=== PATIENT | female | born 1985 | race Caucasian/White ===

== ENCOUNTER 2021-10-13 14:13 | Outpatient (CLI) | payer BC, SELFPAY ==
[2021-10-13 21:52] LABS: Albumin* 4.1 g/dL (3.3-5.0)
[2021-10-13 21:54] LABS: Chloride* 102 mmol/L (96-114); Creatinine* 0.8 mg/dL (0.5-1.5); Estimated Glomerular Filt Rate 98 ml/min; Potassium* 4.7 mmol/L (3.6-5.1); Sodium* 138 mmol/L (135-149)
[2021-10-13 21:55] LABS: Alanine Aminotransferase* 12 U/L (4-35); Alkaline Phosphatase* 58 U/L (40-150); Aspartate Amino Transferase* 22 U/L (12-35); Bilirubin Total* 0.6 mg/dL (0.1-1.5); Blood Urea Nitrogen* 13 mg/dL (5-24); Calcium* 9.1 mg/dL (8.4-10.6); Carbon Dioxide* 30 mmol/L (20-32); Glucose* 74 mg/dL (60-115); Total Protein* 6.9 g/dL (6.0-8.3)
== END 2021-10-13 14:14 | disposition home or self-care (01) ==
PROVIDERS: PCP Physician Assistant Medical; Visit Provider Physician Assistant Medical
DX: R42 Dizziness and giddiness (principal)
CPT/HCPCS: 80053; 84443

== ENCOUNTER 2021-10-17 10:33 | Outpatient (CLI) | payer BC, SELFPAY | END 2021-10-17 10:34 | disposition home or self-care (01) | LOC: LKVREF 10-19 10:49 | PROVIDERS: PCP Physician Assistant Medical; Visit Provider Nurse Practitioner Family | DX: R35.0 Frequency of micturition (principal); R30.0 Dysuria; N39.0 Urinary tract infection, site not specified | CPT/HCPCS: 87086; 87186 ==

== ENCOUNTER 2021-10-26 07:11 | Outpatient (CLI) | payer BC, SELFPAY ==
--- NOTE | 2021-10-26 07:15 | CRLHL7_ITS ---
For Patients: As a result of the Cures Act, medical imaging exams and procedure reports are released immediately into your electronic medical record. You may view this report before your referring provider. If you have questions, please contact your health care provider. INDICATION: Migraines. TECHNIQUE: Sagittal T1 axial FLAIR T2 and diffusion weighted images. COMPARISON: Previous MRI brain dated 07/06/2020. FINDINGS: Lateral 3rd and 4th ventricles are normal in size and shape. No evidence of recent ischemic infarction. No areas of diffusion restriction. No evidence of intracranial hemorrhage. No mass effect or brain edema. Brainstem and cerebellum appear normal. The orbits sella turcica and skullbase unremarkable. Small chronic retention cyst in the right maxillary antrum. IMPRESSION: 1. No evidence of acute infarction intracranial hemorrhage or mass. 2. No interval changes - no new findings compared to prior MRI of 07/06/2020. Dictated by Mj Weinstein MD @ 10/26/2021 9:20:00 AM (Electronically Signed)
== END 2021-10-26 07:12 | disposition home or self-care (01) ==
LOC: MRI 07:13
PROVIDERS: PCP Physician Assistant Medical; Visit Provider Physician Assistant Medical
DX: G43.909 Migraine, unspecified, not intractable, without status migrainosus (principal)
CPT/HCPCS: 70551

== ENCOUNTER 2022-01-11 15:21 | Outpatient (CLI) | payer BC, SELFPAY ==
[2022-01-13 19:11] LABS: Rheumatoid Factor <10 IU/mL (0-14)
[2022-01-14 00:32] LABS: Anti-Nuclear Ab(ANA)IgG ELISA None Detected (None Detected)
== END 2022-01-11 15:22 | disposition home or self-care (01) ==
PROVIDERS: PCP Physician Assistant Medical; Visit Provider Otolaryngology
DX: H93.19 Tinnitus, unspecified ear (principal)
CPT/HCPCS: 84443; 86039; 86431; 86618

== ENCOUNTER 2022-01-26 19:27 | Outpatient (CLI) | payer BC, SELFPAY ==
--- NOTE | 2022-02-02 14:38 | W.PM.SLEEP ---
Sleep Study Details Details Interpreting Provider: Wale Sahu MD Date of Sleep Study: 01/26/22 Sleep Study Details: STUDY TYPE:? Home ? BMI:? 31.7 ORDERING PROVIDER:? Homero INDICATION:? Concerns about sleep apnea ? SLEEP SUMMARY:? 464 minutes monitored RESPIRATORY SUMMARY:? AHI 8.4, supine 7.4, prone 4.9, right lateral 16.4 Low oxygen 90 Snoring 0.1% PERIODIC LIMB MOVEMENTS OF SLEEP:? Not recorded CARDIAC:? Range 46-102, mean 63.3 IMPRESSION:? Mild obstructive sleep apnea worse in the supine position and right lateral position. RECOMMENDATION: Treatment options include CPAP AutoSet 4-17, dental appliance and/or airway expansion surgery
== END 2022-01-26 19:28 | disposition home or self-care (01) ==
LOC: SLEEP 19:28
PROVIDERS: PCP Physician Assistant Medical; Visit Provider Otolaryngology
DX: G47.33 Obstructive sleep apnea (adult) (pediatric) (principal)
CPT/HCPCS: 95806

== ENCOUNTER 2022-02-04 15:10 | Outpatient (CLI) | payer BC, SELFPAY ==
--- NOTE | 2022-02-04 15:26 | CRLHL7_ITS ---
For Patients: As a result of the Century Cures Act, medical imaging exams and procedure reports are released immediately into your electronic medical record. You may view this report before your referring provider. If you have questions, please contact your health care provider. Indication: Headache. Technique: CT of the sinuses performed without IV contrast Comparison: MR brain 10/26/2021. Findings: Frontal sinuses: Clear. Ethmoid sinuses: Minimal mucosal thickening, with small because tension cyst/polyp left ethmoid air cells. Maxillary sinuses: Mild polypoid mucosal thickening along the floor of the right maxillary sinus. Left maxillary sinus is clear. Sphenoid sinuses: Clear. The ostiomeatal units, sphenoethmoidal and frontoethmoidal recesses are patent. No air-fluid levels. No aggressive osseous erosion or periosteal reaction. No face into the fat planes. Nasal Cavity: Slight rightward nasal septal deviation. The temporomandibular joints appear intact. Mastoid air cells appear clear. Visualized intracranial compartments appear grossly intact. Impression: 1. Mild polypoid mucosal thickening along the floor of the right maxillary sinus. Minimal ethmoid sinus mucosal disease. 2. No evidence of acute sinusitis Please note that all CT scans at this facility use dose modulation, iterative reconstruction, and/or weight-based dosing when appropriate to reduce radiation dose to as low as reasonably achievable. Dictated by Jass Fitzgerald MD @ 02/04/2022 4:39:39 PM (Electronically Signed)
== END 2022-02-04 15:11 | disposition home or self-care (01) ==
LOC: CT 15:11
PROVIDERS: PCP Physician Assistant Medical; Visit Provider Otolaryngology
DX: R51.9 Headache, unspecified (principal); J32.0 Chronic maxillary sinusitis
CPT/HCPCS: 70486

== ENCOUNTER 2022-04-21 09:13 | Outpatient (CLI) | payer BC, SELFPAY | END 2022-04-21 09:14 | disposition home or self-care (01) | LOC: NFLDREF 04-28 13:45 | PROVIDERS: PCP Physician Assistant Medical; Referring Provider Physician Assistant Medical; Visit Provider Physician Assistant Medical | DX: R39.9 Unspecified symptoms and signs involving the genitourinary system (principal); N39.0 Urinary tract infection, site not specified | CPT/HCPCS: 87086; 87186 ==

== ENCOUNTER 2022-07-31 18:57 | Emergency (ER) | payer BC, SELFPAY ==
[2022-07-31 19:10] VITALS: BP 134/89; PULSE 97; RESP 18; TEMP 36.6; O2SAT 99; BMI 32.4
--- NOTE | 2022-07-31 19:27 | ED.GENADULT ---
HPI - General Adult General Chief complaint: Headache/Migraine Stated complaint: Migraine Vomiting 3 days Time Seen by Provider: 07/31/22 19:07 Source: patient Mode of arrival: ambulatory Limitations: no limitations History of Present Illness HPI narrative: 37-year-old female coming in today complaining of a migraine headache this started yesterday. She states that she had a mild headache on Monday which did not bother her too much Monday. Monday the the headache got worse and she took ibuprofen which did help. Today as the day went on the headache got even worse. It is located behind her left eye where it generally is. She denies any focal neurologic deficits. She has been vomiting today. She denies any confusion, blurry vision or changes in her hearing. She denies any recent fevers or chills. This is a little worse than her usual migraines but not unusual. She states that she gets a migraine once every 6-8 weeks on average. She has tried Imitrex in the past without any success and that is the only thing she has tried. She did have sinus surgery polyp removals in the septoplasty just about 4 weeks ago, surgery was uncomplicated. Recovery has been as expected. Related Data Previous Rx's Medication Instructions Recorded ondansetron 4 mg disintegrating 4 mg PO Q8H #10 tabs 07/01/22 tablet oxycodone 5 mg tablet 5 mg PO Q4H PRN pain #30 tabs 07/05/22 eletriptan 40 mg tablet (Relpax) See Rx Instructions PO .COMPLEX #7 07/31/22 tabs Allergies Allergy/AdvReac Type Severity Reaction Status Date / Time No Known Drug Allergies Allergy Verified 07/12/22 09:26 Review of Systems Status of ROS: Reports: 10 or more systems reviewed and unremarkable except as noted in History and below [facility] Medical History UTI (urinary tract infection) ?N39.0 - Urinary tract infection, site not specified (ICD-10) History of migraine ?Z86.69 - Personal history of other diseases of the nervous system and sense organs (ICD-10) History of abnormal cervical Papanicolaou smear ?Z87.42 - Personal history of other diseases of the female genital tract (ICD-10) Surgical History Status post vaginal hysterectomy ?Z90.710 - Acquired absence of both cervix and uterus (ICD-10) History of foot surgery (2007) ?Z98.890 - Other specified postprocedural states (ICD-10) History of dilation and curettage ?Z98.890 - Other specified postprocedural states (ICD-10) History of bladder surgery (06/13/18) ?Z98.890 - Other specified postprocedural states (ICD-10) Family History Maternal Grandmother Cervical cancer Mother Type 2 diabetes mellitus Social History Narrative: Alcohol ingestion, 1-4 drinks/week Marijuana use Non-smoker Smoking Status: Never smoker Do you use any of these nicotine containing products: None How often do you have a drink containing alcohol: never AUDIT-C Alcohol total score: 0 Non-prescribed substance use: denies use Exam Narrative: Exam Narrative: Well-nourished well-developed patient, appears very uncomfortable. Alert and oriented x3. Answers questions appropriately. Thoughts are goal oriented and rational. No tangential or magical thinking noted. Patient speaks in full sentences without needing to catch her breath. Speech is not slurred or pressured. HEENT: Normocephalic atraumatic. Pupils are equally round reactive to light. Extraocular muscles are intact. Conjunctivae are moist without any icterus noted. Moist mucous membranes. Cardiovascular: Heart is regular rate and rhythm S1 and S2 are present without any murmurs. Lungs: Clear to auscultation bilaterally no wheezes rhonchi or rales are appreciated. Patient takes deep breaths without any discomfort. Extremities: Bilateral lower extremities are without edema. Skin: Well perfused without any obvious rashes. Strength is 5/5 of the upper and lower extremities. There is no nystagmus either horizontally or vertically. Gait is normal. Const: Vital Signs, click to edit/add: Vital Signs - 24 hr 07/31/22 19:10 07/31/22 20:05 Temperature 98 F Pulse Rate [Pulse Oximeter] 97 Respiratory Rate 18 Blood Pressure [Le ft Upper Arm] 134/89 Pulse Oximetry 99 99 Oxygen Delivery Me thod Room Air Course Course Hospital Course: IV established and patient received 1 L of normal saline, Zofran, Benadryl, Decadron, and Toradol. She did have relief from her symptoms afterwards. Vital Signs Vital signs: Initial Vital Signs Temperature 98 F 07/31/22 19:10 Temperature Source Temporal Artery Scan 07/31/22 19:10 Pulse Rate 97 07/31/22 19:10 Respiratory Rate 18 07/31/22 19:10 Blood Pressure 134/89 07/31/22 19:10 Blood Pressure Mean 104 07/31/22 19:10 Blood Pressure Position Supine 07/31/22 19:10 Pulse Oximetry 99 07/31/22 19:10 Oxygen Delivery Method Room Air 07/31/22 19:10 Vital Signs Temperature 98 F 07/31/22 19:10 Pulse Rate 97 07/31/22 19:10 Respiratory Rate 18 07/31/22 19:10 Blood Pressure 134/89 07/31/22 19:10 Pulse Oximetry 99 07/31/22 19:10 Oxygen Delivery Method Room Air 07/31/22 19:10 Temperature 98 F 07/31/22 19:10 Pulse Rate 60 07/31/22 21:00 Respiratory Rate 18 07/31/22 21:00 Blood Pressure 130/76 07/31/22 21:00 Pulse Oximetry 98 07/31/22 21:00 Oxygen Delivery Method Room Air 07/31/22 21:00 Medical Decision Making MDM Narrative Medical decision making narrative: 37-year-old female with migraine headaches. Feeling better after treatment per above. Will send the patient home with Relpax to use p.r.n.. Recommend she follow up with her primary care provider for further management. Discharge Plan Discharge Clinical Impression: Migraine Patient Disposition: Home, Self-Care Condition: Improved Additional Instructions: You will be sent home today with a prescription for Relpax which is a medication you take at the onset of your migraine headaches. I recommend you follow-up with your primary care provider for refills if this medication works, or follow-up to try different medication if this medication does not work for you. Prescriptions: New eletriptan [Relpax] 40 mg tablet See Rx Instructions .ROUTE .COMPLEX Qty: 7 0RF Rx Instructions: take 1 tab at onset of headache; if no relief, may repeat 1 tab after at least 2 hrs; max = 2 tabs/24 hrs No Action oxycodone 5 mg tablet 5 mg PO Q4H PRN (Reason: pain) Qty: 30 0RF ondansetron 4 mg tablet,disintegrating 4 mg PO Q8H Qty: 10 0RF Follow Up/Referrals: Joseph Hurtado PA-C [Primary Care Provider] - Stand Alone [facility] Info Inst[facility]
[2022-07-31] MEDS: KETOROLAC 30 MG/ML inj IVP (19:42)
[2022-07-31] MEDS: ONDANSETRON 2 MG/ML inj 4 MG IVP (19:43)
[2022-07-31] MEDS: diphenhydrAMINE 50 MG/ML inj 25 MG IVP (19:44)
[2022-07-31] MEDS: dexAMETHasone 4 MG/ML VIAL 8 MG IV (19:46)
[2022-07-31] MEDS: 0.9 % SODIUM CHLORIDE 1000 ml 1,000 ML IV (20:03)
[2022-07-31 20:05] VITALS: O2SAT 99
[2022-07-31 21:00] VITALS: BP 130/76; PULSE 60; RESP 18; O2SAT 98
== END 2022-07-31 21:14 | disposition home or self-care (01) ==
PROVIDERS: Emergency Provider Family Medicine; PCP Physician Assistant Medical
DX: G43.909 Migraine, unspecified, not intractable, without status migrainosus (principal)
CPT/HCPCS: 94761; 96374; 96375; 99283; 99284; J1100; J1200; J1885; J2405; J7030

== ENCOUNTER 2022-10-02 19:22 | Outpatient (CLI) | payer BC, SELFPAY ==
--- NOTE | 2022-10-19 09:58 | W.PM.SLEEP ---
Sleep Study Details Details Interpreting Provider: Homero Date of Sleep Study: 10/02/22 Sleep Study Details: STUDY TYPE:? Home unattended ? BMI:? 29.2 ORDERING PROVIDER:Laura Valentin INDICATION:? Concerns about sleep apnea ? SLEEP SUMMARY:? 535.8 minutes monitored RESPIRATORY SUMMARY:? AHI 7.3, supine 8.6, left lateral 6.0, right lateral 4.2 Low oxygen 87 Snoring 0 % PERIODIC LIMB MOVEMENTS OF SLEEP:? Not recorded during home studies CARDIAC:? Range 46-100, mean 64.1 IMPRESSION:? Mild obstructive sleep apnea with mild supine position dependency RECOMMENDATION: Treatment options would include AutoSet CPAP, dental appliance and/or airway expansion surgery.
== END 2022-10-02 19:23 | disposition home or self-care (01) ==
LOC: SLEEP 19:23
PROVIDERS: PCP Physician Assistant Medical; Visit Provider Otolaryngology
DX: G47.33 Obstructive sleep apnea (adult) (pediatric) (principal)
CPT/HCPCS: 95806

== ENCOUNTER 2023-12-22 10:29 | Outpatient (CLI) | payer BC, SELFPAY ==
--- OUTSIDE RECORDS SUMMARY | 2023-12-22 10:34 | XMS_ITS | Clinical Summary ---
Author Organization [employer] [facility] Address [place], [place] [address] Care Team Providers Care Central Office Installer Name Role Phone Chanel Armstrong MD Primary Care Provider Unav ailable Allergies No known active allergies Medications No known medications Active Problems Problem Noted Date Diagnosed Date Seizure disorder 06/14/2016 Resolved Problems Problem Noted Date Diagnosed Date Resolved Date Vaginal delivery 11/07/2014 06/14/2016 Supervision of high-risk 10/18/2013 06/14/2016 Immunizations Name Administration Dates Next Due Influenza, IIV4 01/10/2018,11/09/2014 Tdap 08/14/2014 Family History Medical History Relation Name Comments No Known Problems Father Diabetes Mother Relation Name Status Comments Father Alive Maternal Grandfather Alive Maternal Grandmother Alive Mother Alive Paternal Grandfather Alive Paternal Grandmother Alive Social History Tobacco Use Types Packs/Day Years Used Date Smoking Tobacco: Never Smokeless Tobacco: Never Tobacco Cessation:Counseling Given: Yes Alcohol Use Standard Drinks/Week Comments Yes 0 (1 standard drink = 0.6 oz pure alcohol) Twice a week; 1-2 glasses of wine at a time. PHQ-2 Answer Date Recorded PHQ-2 Score 0 06/07/2018 Sex and Gender Information Value Date Recorded Sex Assigned at Not on file Gender Identity Not on file Sexual Orientation Not on file Obstetrics History Para Term AB IAB SAB Ectopic Multiple Livin g Live Births 6 3 3 0 3 1 2 0 0 3 3 Date Outcome GA Total Labor Labor/2nd/3rd Weight Sex Type Anes PTL Marce A1 A5 Name Clin 2006 IAB 2009 SAB 2010 Term 39w 0d 9h 00m/ 3.4 kg (7 lb 8 oz) M Vag Epidur al N Mark courtney Miko Delivery Location:[place] Comments:Induction 2012 SAB Comments:D&C 2013 Term 40w 6d 3.13 kg (6 lb 14.4 oz) F Nieves Flores g 9 9 Yari [facility] 2014 Term 40w 0d M Nieves Soto Last Filed Vital Signs Vital Sign Reading Time Taken Comments Blood Pressure 131/74 05/29/2020 9:00 AM CDT Pulse 65 05/29/2020 9:00 AM CDT Temperature 36.1 ??C (96.9 ??F) 05/29/2020 7:34 AM CD T Respiratory Rate 20 05/29/2020 7:34 AM CDT Oxygen Saturation 99% 05/29/2020 9:00 AM CDT Inhaled Oxygen Concentration - - Weight 79.4 kg (175 lb) 05/29/2020 8:05 AM CDT Height 160 cm (5' 3) 05/29/2020 8:05 AM CDT Body Mass Index 31 05/29/2020 8:05 AM CDT Plan of Treatment Health Maintenance Due Date Last Done Comments HIV for age 15-65 2000 Hepatitis C screening for ag e 18-79 06/25/2003 BMI (ht and wt on same day) for age 18+ 06/08/2019 06/07/2018, 03/28/2017, 06/14/2016 Depression screening for age 12+ 06/08/2019 06/07/2018, 06/14/2016 Pap test for age 21-65 01/08/2022 01/08/2019 COVID-19 vaccine series (2023- season) 2023 Influenza for age 9-49 10/22/2023 8, 11/09/2014 Tetanus booster 08/14/2024 08/14/2014 Tdap Completed 08/14/2014 Pneumococcal series for age 6-64 Aged Out No longer eligible b ased on patient's age to complete this topic Procedures Procedure Name Priority Date/Time Associated Diagnosis Comments ROAD MONKEY THIN PREP PAP SCREEN IMAGED Routine 01/08/2019 1:30 PM FRUIT CHECKER from Last 3 Months or Most Recently Relevant to Health Maintenance Results * ROAD MONKEY THIN PREP PAP SCREEN IMAGED (01/08/2019 1:30 PM FRUIT CHECKER) Case Report Gynecologic Cytology Report ? Case: [id number] ? Authorizing Provider: ??Rui Hickman MD ??Collected: ? 01/08/2019 1330 ? Ordering Location: ? [facility] ?Received: ?01/10/2019 0811 ? First Screen: ?Fredy Henriquez ? Specimen: ?ROAD MONKEY ThinPrep Vial Screening, Cervical/Vaginal ? 01/22/2019 1:20 PM [facility] ENTRAL LABORATORY INTERPRETATI ON/RESULT NEGATIVE FOR INTRAEPITHELIAL LESION OR MALIGNANCY (NIL) (none) 01/22/2019 1:20 PM [facility] IMEN ADEQUACY Satisfactory for evaluation No endocervical component seen 01/22/2019 1:20 PM FRUIT CHECKER [facility] HPV REQUEST HPV if ASCUS 01/22/2019 1:20 PM FRUIT CHECKER [facility] Date of LMP 12/28/2018 01/22/2019 1:20 PM [facility] EN[facility] Automated Review Failed 01/22/2019 1:20 PM FRUIT CHECKER [facility] ENTRAL LABORATORY Comment:Processing failed, m anual screening required. ThinPrep Imaging System, [employer] Note The pap test is a screening technique, not a diagnostic procedure. ??It is used primarily to screen for squamous cancers and precursor lesions. ??Published studies have shown that it is subject to both false negative and false positive results. ??The pap test should not be used as the sole means to diagnose or exclude pre-malignant and malignant lesions. Cytology is screened and interpreted at [facility] - [address], [place] [address] and [facility] - [address]; [place] [address] and [facility] - [address]; [place] [address] and [facility] [address]; [place] [address] 01/22/2019 1:20 PM FRUIT CHECKER [facility] Other (Cervical/Vagina l) 01/08/2019 1:30 PM FRUIT CHECKER 01/10/2019 8:11 AM FRUIT CHECKER Rui Hickman MD PATHOLOG[facility] [address] [place] [address], from Last 3 Months or Most Recently Relevant to Health Maintenance Advance Directives * Full Code (Latest Code Status on File) Date Activated Date Inactivated Comments 11/07/2014 5:40 PM 11/09/2014 1:59 PM * Full Code Date Activated Date Inactivated Comments 11/07/2014 7:29 AM 11/07/2014 5:40 PM * Full Code Date Activated Date Inactivated Comments 10/07/2014 12:32 PM 10/07/2014 6:13 PM * Full Code Date Activated Date Inactivated Comments 10/18/2013 3:05 PM 10/20/2013 1:46 PM * Full Code Date Activated Date Inactivated Comments 10/18/2013 7:16 AM 10/18/2013 3:05 PM Care Teams Central Office Installer Relationship Specialty Start Date End Date Chanel Armstrong MD PCP - General Family Practice 06/07/18
--- NOTE | 2023-12-22 10:45 | CRLHL7_ITS ---
For Patients: As a result of the Century Cures Act, medical imaging exams and procedure reports are released immediately into your electronic medical record. You may view this report before your referring provider. If you have questions, please contact your health care provider. DIGITAL DIAGNOSTIC BILATERAL MAMMOGRAM USING TOMOSYNTHESIS AND COMPUTER-AIDED DETECTION RIGHT BREAST ULTRASOUND CLINICAL HISTORY: RIGHT breast lump. COMPARISON: None. TECHNIQUE: Digital BILATERAL mammogram in four projections with computer-aided detection. Tomosynthesis was used in this interpretation. Real-time ultrasound imaging of RIGHT breast with imaging documentation. BREAST COMPOSITION: There are scattered areas of fibroglandular density. FINDINGS: 3D CC/MLO BILATERAL mammogram images submitted. No suspicious masses or architectural distortion. No suspicious calcifications or adenopathy. Targeted RIGHT breast ultrasound performed at 11 o`clock 9 cm from the nipple. Normal fibroglandular tissue is present. No solid mass or fibrocystic change. IMPRESSION: No suspicious findings. No evidence of malignancy. RECOMMENDATIONS: Age-appropriate screening mammography. Results and recommendations were discussed with the patient. BI-RADS Category 2: Benign A lay language report of this examination will be provided to the patient. Dictated by Zaid Guzman MD @ 12/22/2023 11:59:07 AM jj/Dictated by: Zaid Guzman MD @ 12/22/2023 11:59:00 AM (Electronically Signed)
--- NOTE | 2023-12-22 11:15 | CRLHL7_ITS ---
For Patients: As a result of the Cures Act, medical imaging exams and procedure reports are released immediately into your electronic medical record. You may view this report before your referring provider. If you have questions, please contact your health care provider. PLEASE SEE DIGITAL DIAGNOSTIC BILATERAL MAMMOGRAM PERFORMED SAME DAY CRL:bob rojas/Dictated by: Zaid Guzman MD @ 12/22/2023 11:59:00 AM (Electronically Signed)
== END 2023-12-22 10:30 | disposition home or self-care (01) ==
LOC: MAMMO 10:30
PROVIDERS: PCP Physician Assistant Medical; Visit Provider Physician Assistant Medical
DX: N63.10 Unspecified lump in the right breast, unspecified quadrant (principal)
CPT/HCPCS: 76642; 77066; G0279

== ENCOUNTER 2024-01-03 12:59 | Outpatient (CLI) | payer BC, SELFPAY ==
--- OUTSIDE RECORDS SUMMARY | 2024-01-03 13:02 | XMS_ITS | Clinical Summary ---
Author Organization [employer] [facility] Address [place], [place] [address] Care Team Providers Care Washer Repairman Name Role Phone Chanel Armstrong MD Primary [...] Epidur al N Mark courtney Miko Delivery Location:[place] Comments:Induction 2012 SAB Comments:D&C 2013 Term 40w 6d 3.13 kg (6 lb 14.4 oz) F Nieves Flores g 9 9 Yari [facility] 2014 Term 40w 0d M [...] Procedure Name Priority Date/Time Associated Diagnosis Comments ACCOUNT CONTACT ASSOCIATE THIN PREP PAP SCREEN IMAGED Routine 01/08/2019 1:30 PM PROFESSOR OF FOREST PLANNING from Last 3 Months or Most Recently Relevant to Health Maintenance Results * ACCOUNT CONTACT ASSOCIATE THIN PREP PAP SCREEN IMAGED (01/08/2019 1:30 PM PROFESSOR OF FOREST PLANNING) Case Report Gynecologic Cytology Report ? Case: [id number] ? Authorizing Provider: ??Rui Hickman MD ??Collected: ? 01/08/2019 1330 ? Ordering Location: ? [facility] ?Received: ?01/10/2019 0811 ? First Screen: ?Fredy Henriquez ? Specimen: ?ACCOUNT CONTACT ASSOCIATE ThinPrep Vial Screening, Cervical/Vaginal ? 01/22/2019 1:20 PM [facility] ENTRAL LABORATORY INTERPRETATI ON/RESULT NEGATIVE FOR INTRAEPITHELIAL LESION OR MALIGNANCY (NIL) (none) 01/22/2019 1:20 PM [facility] ENTRAL LAB[facility]AT[facility] IMEN ADEQUACY Satisfactory for evaluation No endocervical component seen 01/22/2019 1:20 PM PROFESSOR [employer] [facility] HPV REQUEST HPV if ASCUS 01/22/2019 1:20 PM PROFESSOR [employer]ING [facility] Date of LMP 12/28/2018 01/22/2019 1:20 PM [facility] Automated Review Failed 01/22/2019 1:20 PM PROFESSOR OF FOREST PLANNING [facility] ENTRAL LABORATORY Comment:Processing failed, m anual screening required. ThinPrep Imaging System, [employer] Note The pap test is a [...] lesions. Cytology is screened and interpreted at [facility] - [address], [place] [address] and [facility] - [address]; [place] [address] and [facility] - [address]; [place] [address] and [facility] [address]; [place] [address] 01/22/2019 1:20 PM PROFESSOR OF FOREST PLANNING [facility]- ENTRLA LABORATORY Other (Cervical/Vagina l) 01/08/2019 1:30 PM PROFESSOR OF FOREST PLANNING 01/10/2019 8:11 AM PROFESSOR OF FOREST PLANNING Rui Hickman MD [facility]OLOG[facility] [address] [place] [address], from Last 3 Months or Most Recently [...] 7:16 AM 10/18/2013 3:05 PM Care Teams Washer Repairman Relationship Specialty Start Date End Date Chanel Armstrong MD PCP - General Family Practice 06/07/18
== END 2024-01-03 13:00 | disposition home or self-care (01) ==
LOC: FRMREF 13:01
PROVIDERS: PCP Physician Assistant Medical; Visit Provider Nurse Practitioner Family
DX: Z00.00 Encounter for general adult medical examination without abnormal findings (principal); Z13.6 Encounter for screening for cardiovascular disorders; Z13.1 Encounter for screening for diabetes mellitus
CPT/HCPCS: 80061